=== PATIENT | female | born 1955 | race Caucasian/White ===

== ENCOUNTER 2022-07-10 23:17 | Inpatient (IN) | payer SELFPAY ==
[~2022-07-10] VITALS: Ht 160 cm; Wt 74.8 kg
[2022-07-10 23:22] VITALS: BP_SYST 161
--- NOTE | 2022-07-10 23:22 | NUR ---
Placed in room 3 . Placed on monitor and storage bin tender, blood pressure machine and pulse oximeter. To gown for exam. Side rails up. Report given to Mady MAHMOOD.
--- NOTE | 2022-07-10 23:40 | NUR ---
PATIENT BROUGHT IN BY AMBULANCE FOR SYNCOPAL EPISODE FROM HOME. DAUGHTER REPORTS THAT PATIENT HAD 2 SEPERATE INCIDENCES THAT THIS HAS OCCURRED IN THE LAST 2 MONTHS. PATIENT WAS SEEN YESTERDAY AT [facility] REGARDING SAME COMPLAINT AND FULL WORK UP WAS COMPLETED. PATIENT STATES THAT TODAY SHE HAD PALPITATIONS AND DIZZINESS. DENIES ANY SYMPTOMS AT THIS TIME. DENIES ANY COMPLAINTS.
--- NOTE | 2022-07-10 23:42 | NUR ---
ER at bedside examining patient.
[2022-07-11 00:30] LABS: HEMATOCRIT 36.6 % (36-48); WHITE BLOOD COUNT (AUTO) 7.1 K/uL (4.8-10.8)
--- NOTE | 2022-07-11 00:30 | NUR ---
PATIENT OFF UNIT TO CT SCAN
[2022-07-11 00:35] LABS: BILIRUBIN,URINE NEGATIVE (NEGATIVE); BLOOD, URINE NEGATIVE (NEGATIVE); CLARITY/URINE CLEAR (CLEAR); COLOR,URINE YELLOW (YELLOW); GLUCOSE,URINE NEGATIVE (NEGATIVE); KETONES,URINE NEGATIVE (NEGATIVE); LEUKOCYTE ESTERASE ,URINE 1+ (NEGATIVE); NITRITE, URINE NEGATIVE (NEGATIVE); PH,URINE 6.5 (5.0-8.0); PROTEIN URINE NEGATIVE (NEGATIVE); UROBILINOGEN,URINE 0.2 (0.2-1.0)
[2022-07-11 00:38] LABS: ANION GAP 7 (5-15); CALCIUM 9.9 mg/dL (8.4-11.0); CHLORIDE 100 mmol/L (98-107); CREATININE 1.11 mg/dL (0.55-1.30); GLUCOSE 106 mg/dL (70-99); POTASSIUM 3.8 mmol/L (3.5-5.1); SODIUM SERUM 135 mmol/L (136-145); UREA NITROGEN, BLOOD 30 mg/dL (8-21)
--- NOTE | 2022-07-11 00:39 | NUR ---
PATIENT RETURNED FROM CT SCAN.
[2022-07-11 00:41] LABS: BASOPHILS # (AUTO) 0.1 K/uL (0.0-0.2); BASOPHILS % (AUTO) 0.8 % (0.0-2.0); EOSINOPHILS # (AUTO) 0.3 K/uL (0.0-0.4); EOSINOPHILS % (AUTO) 4.8 % (0.0-4.0); HEMOGLOBIN 12.3 g/dL (12.0-16.0); LYMPHOCYTES # (AUTO) 1.8 K/uL (1.0-5.5); LYMPHOCYTES % (AUTO) 25.6 % (20.5-51.5); MEAN CORPUSCULAR HEMOGLOBIN 27 pg (27-31); MEAN CORPUSCULAR HGB CONC 34 % (32-36); MEAN CORPUSCULAR VOLUME 80 fL (79.0-98.0); MONOCYTES # (AUTO) 0.7 K/uL (0.0-1.0); MONOCYTES % (AUTO) 9.9 % (1.7-9.3); NEUTROPHILS # (AUTO) 4.2 K/uL (1.8-7.7); NEUTROPHILS % (AUTO) 58.9 % (40.0-70.0); PLATELET COUNT (AUTO) 265 K/uL (130-430); RED BLOOD CELL COUNT(AUTO) 4.58 MIL/uL (4.2-6.2); RED CELL DISTRIBUTION WIDTH 14.7 % (9.0-15.0)
[2022-07-11 00:42] LABS: INR 0.9 (0.8-1.2); PROTHROMBIN TIME 9.3 SECS (9.5-12.5)
[2022-07-11 00:53] LABS: ALANINE AMINOTRANSFERASE 22 U/L (12-78); ALBUMIN 3.7 g/dL (3.4-4.8); ASPARTATE AMINOTRANSFERASE 23 U/L (10-37); THYROID STIMULATING HORMONE 4.34 uIu/mL (0.36-3.74); TOTAL BILIRUBIN 0.2 mg/dL (0.0-1.0)
[2022-07-11 00:55] LABS: GFR AFRICAN AMERICAN 63 mL/min (>90)
[2022-07-11 01:10] LABS: BACTERIA,URINE None Seen /HPF (None Seen); MUCUS,URINE 3+ /LPF (None Seen)
[2022-07-11] MEDS ORDERED: NACL 0.9% 1,000 ML IV ONE (01:45)
[2022-07-11] MEDS ORDERED: cefTRIAXone 1 GM IVPB PREMIX 50 ML IV ONE (01:45)
--- NOTE | 2022-07-11 01:48 | NUR ---
Admit bed requested Patient will be admitted to care of . Admitted to TELE unit. Diagnosis [facility] Inpatient (Yes or No) YES Observation (Yes or No) NO Orientation concerns or request close to nursing station (Yes or No) NO Covid Status PENDING On vent or bipap NO Isolation requirements NO Needs a sitter NO From Home (Yes or if No enter name of facility) YES Requires Dialysis (Yes or No) NO Med Rec Completed (Yes of No) PENDING
--- NOTE | 2022-07-11 03:18 | NUR ---
Patient will be admitted to care of . Admitted to unit. Will go to room . Belongings list completed. Complete and up to date summary report printed. SBAR report to be given at bedside with opportunity for questions.
--- NOTE | 2022-07-11 03:23 | NUR ---
ADMIT NOTE Received pt from ER to the floor with a diagnosis of syncope, UTI. Admission process initiated. Patient oriented to pain management, safety and call light-teach back done.
--- NOTE | 2022-07-11 04:20 | NUR ---
CONSULT: CONSULT CALLED FOR DR. JAVIER I SPOKE TO ANGELINE CRISTÓBAL REASON FOR CONSULT: [facility] REQUESTING CONSULT: DR. CORTÉS [employer]INEER PHONE NUMBER: [phone]
[2022-07-11 05:50] VITALS: BP_SYST 140
--- NOTE | 2022-07-11 06:00 | NUR ---
Spoke with Dr. Be regarding new admission. Informed him that patient is showing sinus bradycardia on the monitor, HR 56-58, and is experiencing some dizziness when walking but no chest pain. No new orders at this time.
[2022-07-11] MEDS ORDERED: LOSA100T3 PO (06:06)
[2022-07-11] MEDS ORDERED: DILT180C67 PO (06:06)
--- NOTE | 2022-07-11 06:08 | NUR ---
Medication reconciliation completed with information provided by josep Mccauley at bedside.
--- NOTE | 2022-07-11 07:13 | NUR ---
Patient sleeping in bed, unlabored breathing on room air. Daughter at bedside.
[2022-07-11 08:30] VITALS: BP_SYST 140
[2022-07-11] MEDS ORDERED: LOSARTAN POTASSIUM 50 MG TABLET (COZAAR) PO SCH (09:00)
--- NOTE | 2022-07-11 09:11 | NUR ---
Pt awake, alert, and oriented x4, vss, no sign of acute distress, SB 57 on tele. Will closely monitor. ECHO in progress.
[2022-07-11] MEDS: ASPIRIN 81 MG TAB.CHEW PO SCH (09:58)
[2022-07-11] MEDS: DILTIAZEM HCL 120 MG CAP.SR.24H PO SCH (10:01)
[2022-07-11 12:06] VITALS: BP_SYST 140
[2022-07-11 13:25] VITALS: BP_SYST 137
--- NOTE | 2022-07-11 13:25 | NUR ---
PATIENT BACK FROM CT. PT COMPLAINING OF DIZZINESS AND RIGHT ARM TINGLING. CHECKED VS AND IT IS STABLE, DENIES ANY PAIN, NEURO INTACT EXCEPT COMPLAIN OF TINGLING TO RIGHT ARM. WILL INFORM DR. GUZMAN.
--- NOTE | 2022-07-11 14:00 | NUR ---
Informed Dr. Pollard regarding pt complain of right arm tingling. Neuro assessment done without any deficit. Vistaril 25 mg qid ordered. Also, reported pt complain of dizziness after CT was done. Vs stable, no acute distress noted.
[2022-07-11 17:35] VITALS: BP_SYST 137
--- NOTE | 2022-07-11 19:12 | NUR ---
OPENING NOTES PATIENT IS RESTING, NO SIGNS OF ACUTE DISTRESS NOTED. FAMILY AT BEDSIDE. CALL LIGHT WITHIN REACH, BED ALARM ON, PATIENT DEMONSTRATES PROPER USAGE OF CALL LIGHT. BED AT LOWEST POSITION, BED LOCKED. DISCUSSED PLAN OF CARE WITH PATIENT. FALL, RESPIRATORY, ASPIRATION, AND SAFETY PRECAUTIONS IN PLACE. RECEIVED REPORT THAT DILITHIAZAM HAD BEEN DISCONTINUED AND VISTARIL HAS BEEN STARTED. WILL CONTINUE TO MONITOR.
[2022-07-11 20:00] VITALS: BP_SYST 126
[2022-07-11 20:35] LABS: BILIRUBIN,URINE NEGATIVE (NEGATIVE); BLOOD, URINE NEGATIVE (NEGATIVE); CLARITY/URINE CLEAR (CLEAR); COLOR,URINE YELLOW (YELLOW); GLUCOSE,URINE NEGATIVE (NEGATIVE); KETONES,URINE NEGATIVE (NEGATIVE); LEUKOCYTE ESTERASE ,URINE TRACE (NEGATIVE); NITRITE, URINE NEGATIVE (NEGATIVE); PROTEIN URINE NEGATIVE (NEGATIVE); UROBILINOGEN,URINE 0.2 (0.2-1.0)
[2022-07-11 23:00] LABS: BACTERIA,URINE None Seen /HPF (None Seen); RBC,URINE 0-3 /HPF (0-3)
[2022-07-11 23:01] LABS: YEAST,URINE Few /HPF (None Seen)
[2022-07-11 23:02] LABS: MUCUS,URINE 2+ /LPF (None Seen)
[2022-07-12] VITALS: BP_SYST 130
--- NOTE | 2022-07-12 06:50 | NUR ---
CLOSING NOTES PATIENT IS RESTING, NO SIGNS OF DISTRESS NOTED. CALL LIGHT WITHIN REACH, BED ALARM ON, BED AT LOWEST POSITION, BED LOCKED. FALL, RESPIRATORY, ASPIRATION, AND SAFETY PRECAUTIONS IN PLACE. ALL NEEDS TO BE MET THROUGHOUT SHIFT. WILL ENDORSE CARE TO ONCOMING SHIFT.
[2022-07-12 06:53] LABS: BASOPHILS # (AUTO) 0.1 K/uL (0.0-0.2); BASOPHILS % (AUTO) 1.2 % (0.0-2.0); EOSINOPHILS # (AUTO) 0.4 K/uL (0.0-0.4); EOSINOPHILS % (AUTO) 7.2 % (0.0-4.0); HEMATOCRIT 35.9 % (36-48); HEMOGLOBIN 12.1 g/dL (12.0-16.0); LYMPHOCYTES # (AUTO) 1.4 K/uL (1.0-5.5); MEAN CORPUSCULAR HEMOGLOBIN 27 pg (27-31); MEAN CORPUSCULAR HGB CONC 34 % (32-36); MEAN CORPUSCULAR VOLUME 80 fL (79.0-98.0); MONOCYTES # (AUTO) 0.6 K/uL (0.0-1.0); MONOCYTES % (AUTO) 9.5 % (1.7-9.3); NEUTROPHILS # (AUTO) 3.5 K/uL (1.8-7.7); NEUTROPHILS % (AUTO) 59.1 % (40.0-70.0); PLATELET COUNT (AUTO) 232 K/uL (130-430); RED BLOOD CELL COUNT(AUTO) 4.48 MIL/uL (4.2-6.2); WHITE BLOOD COUNT (AUTO) 5.9 K/uL (4.8-10.8)
[2022-07-12 07:20] LABS: INR 0.9 (0.8-1.2); PROTHROMBIN TIME 9.7 SECS (9.5-12.5)
--- NOTE | 2022-07-12 07:35 | NUR ---
Patient resting comfortably in bed with daughter at bedside. Patient stable at this time.
[2022-07-12 07:45] VITALS: BP_SYST 139
[2022-07-12 07:48] LABS: ALBUMIN 3.2 g/dL (3.4-4.8); CREATININE 1.05 mg/dL (0.55-1.30); FREE T4 (FREE THYROXINE) 0.8 ng/dl (0.8-1.5); POTASSIUM 4.5 mmol/L (3.5-5.1); THYROID STIMULATING HORMONE 2.01 uIu/mL (0.36-3.74); TOTAL BILIRUBIN 0.2 mg/dL (0.0-1.0)
[2022-07-12 08:00] VITALS: BP_SYST 139
[2022-07-12] MEDS: ASPIRIN 81 MG TAB.CHEW PO SCH (08:46)
[2022-07-12] MEDS: DILTIAZEM HCL 120 MG CAP.SR.24H PO SCH (08:48)
--- NOTE | 2022-07-12 08:48 | NUR ---
Patient stable with carotid ultrasound ending. Scheduled medications given per order. Patient stable with tech and daughter at bedside.
--- NOTE | 2022-07-12 10:20 | NUR ---
Patient asleep with daughter asleep at bedside. Patient stable.
--- NOTE | 2022-07-12 11:28 | NUR ---
Patient asleep at this time; daughter asleep at bedside as well. Patient stable.
[2022-07-12 12:35] VITALS: BP_SYST 129
--- NOTE | 2022-07-12 12:37 | NUR ---
Scheduled medication given per order. Patient stable with daughter at bedside.
[2022-07-12] MEDS ORDERED: CIPROFLOXACIN HCL 500 MG TABLET PO ONE (13:30)
[2022-07-12] MEDS ORDERED: LACTOBACILLUS RHAMNOSUS GG 1 CAP CAPSULE PO ONE (13:45)
[2022-07-12] MEDS: cefTRIAXone 1 GM in D5W 50 ML IV SCH (14:22)
--- NOTE | 2022-07-12 14:22 | NUR ---
Scheduled IV abx given per order. Patient stable at this time.
--- NOTE | 2022-07-12 15:25 | NUR ---
Patient resting comfortably in bed with no complaint of pain at this time. Patient stable.
--- NOTE | 2022-07-12 15:56 | NUR ---
Scheduled medication given per order. Patient stable with no complaint of pain. Daughter, Zehra at bedside.
[2022-07-12 16:30] VITALS: BP_SYST 149
--- NOTE | 2022-07-12 16:30 | NUR ---
Patient stable with daughter at bedside.
--- NOTE | 2022-07-12 18:35 | NUR ---
Daughter came to nurses' station and stated that patient experienced dizziness while eating dinner. Advised that dizziness is a possible side effect of cipro; this medication was given earlier. Will continue to monitor patient. Patient stable throughout shift.
--- NOTE | 2022-07-12 18:45 | NUR ---
Patient sitting in bed, eating dinner. Patient stable with daughter at bedside. Patient stable throughout shift.
--- NOTE | 2022-07-12 19:15 | NUR ---
OPENING NOTES Patient resting in bed - no s/s pain or distress noted. Respirations even and unlabored - head of bed elevated. IV site patent - no s/s redness, infection, or infiltration. Bed locked and in lowest position. Call light within reach. Family at bedside.
[2022-07-12 20:00] VITALS: BP_SYST 141
[2022-07-12] MEDS ORDERED: LOSARTAN POTASSIUM 50 MG TABLET (COZAAR) PO SCH (21:00)
[2022-07-12] MEDS: LACTOBACILLUS RHAMNOSUS GG 1 CAP CAPSULE PO SCH (21:06)
[2022-07-12] MEDS: CIPROFLOXACIN HCL 500 MG TABLET PO SCH (21:06)
[2022-07-13] VITALS: BP_SYST 132
[2022-07-13 08:00] VITALS: BP_SYST 144
--- NOTE | 2022-07-13 08:00 | NUR ---
OPENING NOTE Patient in bed resting with family at bedside, no sign of distress and patient denies pain. Patient states that she "still has some dizziness but feels better". Patient updated on her plan of care, verbalized understanding. All needs met at this time and safety checks made.
[2022-07-13] MEDS: ASPIRIN 81 MG TAB.CHEW PO SCH (10:03)
[2022-07-13] MEDS: CIPROFLOXACIN HCL 500 MG TABLET PO SCH (10:04)
[2022-07-13] MEDS: LACTOBACILLUS RHAMNOSUS GG 1 CAP CAPSULE PO SCH (10:04)
[2022-07-13 12:00] VITALS: BP_SYST 159
--- NOTE | 2022-07-13 13:00 | NUR ---
ROUNDS Patient in bed resting with family at bedside, no sign of distress and denies pain. Updated the patient on her plan of care and the patient expresses wishes to be discharged today so that she can return home to her pets. All needs met at this time and safety checks made.
[2022-07-13] MEDS: cefTRIAXone 1 GM in D5W 50 ML IV SCH (13:18)
--- NOTE | 2022-07-13 14:30 | NUR ---
BLOOD PRESSURE Spoke with Dr Pollard and informed him that the patient's blood pressure has been trending up this shift. acknowledged and stated that patient was still able to be discharged.
[2022-07-13 16:26] VITALS: BP_SYST 167
[2022-07-13] MEDS ORDERED: LACT1CAP57 PO (16:37)
[2022-07-13] MEDS ORDERED: CEPH250C PO (16:37)
[2022-07-13] MEDS ORDERED: LOSA100T3 PO (16:37)
[2022-07-13] MEDS ORDERED: ASA81 PO (16:37)
[2022-07-13] MEDS ORDERED: VIS25 PO (16:41)
[2022-07-13 16:53] VITALS: BP_SYST 167
--- NOTE | 2022-07-13 18:33 | NUR ---
D/C Patient Patient given medication reconciliation form and D/C instructions. Exit Care provided. Patient verbalized understanding. MD discussed with patient the results and treatment provided. Ambulatory with steady gait for discharge to home via private auto with daughter. Patient in stable condition, ID band removed. IV catheter removed, intact and dressing applied, no active bleeding. Patient educated on pain management. All belongings sent with patient.
== END 2022-07-13 18:26 | disposition home or self-care (01) | DRG 310 ==
LOC: SED 23:17 → STU 07-11 01:49
PROVIDERS: ADMIT Internal Medicine; ATTEND Internal Medicine
DX: I48.0 Paroxysmal atrial fibrillation (principal); I10 Essential (primary) hypertension; E66.9 Obesity, unspecified; F41.9 Anxiety disorder, unspecified; R00.1 Bradycardia, unspecified; N76.0 Acute vaginitis; Z20.822 Contact with and (suspected) exposure to COVID-19; Z79.899 Other long term (current) drug therapy; Z68.29 Body mass index [BMI] 29.0-29.9, adult
CPT/HCPCS: 36415; 70450-TC; 71045; 76376; 80053; 80061; 81000; 83605; 83735; 83880; 84439; 84443; 84484; 85025; 85379; 85610-TC; 85730-TC; 87040; 87081; 87086; 93005; 93306; 93880; 96365; 99285; G0378; J0696; J7060